=== PATIENT | female | born 1980 | race Caucasian/White ===

== ENCOUNTER 2017-04-07 13:34 | Emergency (ER) | payer OTHER ==
[~2017-04-07] VITALS: Ht 157.5 cm; Wt 86.2 kg
--- NOTE | ~2017-04-07 | CR278 ---
[facility]. [facility] A Service of [facility] RADIOLOGY TEXT RESULTS PATIENT: SHOSHANA HOLDER LOCATION: SED : [birth year] UNIT #: [id number] AGE: [address]: Deyvi Bowles MD SEX: F ORDER DR: [id number] [address] [address] [id number] E MR#: [id number] Acc #: [id number] NAME: SHOSHANA HOLDER : 1980 SEX: F STUDY DATE/TIME: 04/07/2017 14:40 UNIT: SED ROOM: STUDY DESCRIPTION: CR Wrist 2 View Lt Attending Physician: Deyvi Bowles M.D. Ordering Physician: Deyvi Bowles M.D. Primary Care Physician: Primary Care Physician No MEDICAL IMAGING REPORT This report is preliminary unless electronic signature is present. EXAM Left wrist, 2 views COMPARISON Two views of the left hand on the same date. INDICATION 36-year-old female with distal forearm pain and pain at the wrist after dog bite today. FINDINGS No radiopaque foreign body. Bones are anatomically aligned. No evidence of acute fracture. IMPRESSION Normal exam. No evidence of radiopaque foreign body. Dictated by... Micky Andres M.D. THIS IS AN ELECTRONICALLY VERIFIED REPORT Micky Andres M.D. at 04/11/2017 12:01 PM SUJIT/angle TD: 04/08/2017 08:54 JOB #: [id number] MEDICAL IMAGING REPORT Page 1 of 1
--- NOTE | ~2017-04-07 | CR279 ---
[facility] A Service of [facility] & [facility] RADIOLOGY TEXT RESULTS PATIENT: SHOSHANA HOLDER LOCATION: SED : 82 UNIT #: [id number] AGE: [address]: Deyvi Bowles MD SEX: F ORDER DR: [id number] [address] [address] [id number] E MR#: [id number] Acc #: [id number] NAME: SHOSHANA HOLDER : 1980 SEX: F STUDY DATE/TIME: 04/07/2017 14:49 UNIT: SED ROOM: STUDY DESCRIPTION: CR Wrist 2 View Rt Attending Physician: Deyvi Bowles M.D. Ordering Physician: Deyvi Bowles M.D. Primary Care Physician: Primary Care Physician No MEDICAL IMAGING REPORT This report is preliminary unless electronic signature is present. EXAM Right wrist 04/07/2017 HISTORY 36-year-old female with right wrist pain status post dog bite today. COMPARISON Right hand same date. FINDINGS Two views of the right wrist demonstrate soft tissue gas along the dorsal aspect of the hand and wrist. No radiopaque foreign bodies. No acute bony abnormality. IMPRESSION Soft tissue gas noted along the dorsal aspect of the hand and wrist. No radiopaque foreign bodies or acute bony abnormality. Dictated by... Rico Borrero M.D. THIS IS AN ELECTRONICALLY VERIFIED REPORT Rico Borrero M.D. at 04/08/2017 10:38 AM PARAS/angle TD: 04/08/2017 08:45 JOB #: [id number] MEDICAL IMAGING REPORT Page 1 of 1
--- NOTE | ~2017-04-07 | CR138 ---
[facility] A Service of [facility] & [facility] RADIOLOGY TEXT RESULTS PATIENT: SHOSHANA HOLDER LOCATION: SED : 82 UNIT #: [id number] AGE: [address]: Deyvi Bowles MD SEX: F ORDER DR: [id number] [address] [address] [id number] E MR#: [id number] Acc #: [id number] NAME: SHOSHANA HOLDER : 1980 SEX: F STUDY DATE/TIME: 04/07/2017 14:40 UNIT: SED ROOM: STUDY DESCRIPTION: CR Hand 2 Views Lt Attending Physician: Deyvi Bowles M.D. Ordering Physician: Deyvi Bowles M.D. Primary Care Physician: Primary Care Physician No MEDICAL IMAGING REPORT This report is preliminary unless electronic signature is present. EXAM Left hand, 3 views COMPARISON None. INDICATION 36-year-old female with left hand pain after dog bite today. FINDINGS Bones are anatomically aligned. No evidence of acute fracture or radiopaque foreign body. IMPRESSION No acute radiographic abnormality. No radiopaque foreign body. Dictated by... Micky Andres M.D. THIS IS AN ELECTRONICALLY VERIFIED REPORT Micky Andres M.D. at 04/11/2017 12:36 PM SUJIT/angle TD: 04/08/2017 08:58 JOB #: [id number] MEDICAL IMAGING REPORT Page 1 of 1
--- NOTE | ~2017-04-07 | CR139 ---
STS. [facility] A Service of [facility] & [facility] RADIOLOGY TEXT RESULTS PATIENT: SHOSHANA HOLDER LOCATION: SED : 82 UNIT #: [id number] AGE: [address]: Deyvi Bowles MD SEX: F ORDER DR: [id number] [address] [address] [id number] E MR#: [id number] Acc #: [id number] NAME: SHOSHANA HOLDER : 1980 SEX: F STUDY DATE/TIME: 04/07/2017 14:48 UNIT: SED ROOM: STUDY DESCRIPTION: CR Hand 2 Views Rt Attending Physician: Deyvi Bowles M.D. Ordering Physician: Deyvi Bowles M.D. Primary Care Physician: Primary Care Physician No MEDICAL IMAGING REPORT This report is preliminary unless electronic signature is present. EXAM Right hand 04/07/2017 HISTORY 36-year-old female with right hand pain status post dog bite today. COMPARISON Right wrist same date. FINDINGS Two views of the right hand demonstrate a small amount of soft tissue gas over the dorsal aspect of the hand. No radiopaque foreign bodies. No acute bony abnormality. IMPRESSION Small amount of soft tissue gas along the dorsal aspect of the hand. No radiopaque foreign bodies or acute bony abnormality. Dictated by... Rico Borrero M.D. THIS IS AN ELECTRONICALLY VERIFIED REPORT Rico Borrero M.D. at 04/08/2017 10:38 AM PARAS/angle TD: 04/08/2017 08:44 JOB #: [id number] MEDICAL IMAGING REPORT Page 1 of 1
[~2017-04-07 13:34] MED LIST: ACEBUTOLOL HCL200 MG PO; ALDACTONE; ALLEGRA PO; ALPRAZOLAM PO; AMOXICILLIN PO; ANTIVERT PO; ATARAX PO; BENADRYL25 M3 PO; BENADRYL25 MG PO; BIRTH CONTROL PILL; BISMUTH PO; CLARITHROMYCIN 500 MG PO; CLARITIN10 M2 PO; COGENTIN2 MG PO; IBUPROFEN PO; IBUPROFEN800 MG PO; K-DUR20 ME1 PO; K-DUR20 ME2 PO; KEFLEX500 M1 PO; LOPRESSOR PO; METRONIDAZOLE 250 MG PO; MOBIC15 MG PO; MOTRIN20 MG/ML; NEURONTIN; NORCO1 TAB 10/3 PO; NORFLEX100 M1 PO; NORFLEX100 MG PO; PEPCID AC20 M2 PO; PHENERGAN PO; PHENERGAN25 MG PO; PREDNISONE PO; PREDNISONE5 MG PO; PREDNISONE50 MG PO; PRILOSEC 20MG PO; PRILOSEC20 M1 PO; SECTRAL; SECTRAL 200 MG PO; SECTRAL200 M1 PO; SUCRALFATE PO; TUSSIONEX PENN473 ML PO; VOLTAREN50 MG PO; ZITHROMAX PO; ZYRTEC10 M1 PO
== END 2017-04-07 16:00 | disposition home or self-care (01) ==
LOC: SED 13:34
DX: S61.432A Puncture wound without foreign body of left hand, initial encounter (principal); S61.431A Puncture wound without foreign body of right hand, initial encounter; Z23 Encounter for immunization; I48.91 Unspecified atrial fibrillation; G43.909 Migraine, unspecified, not intractable, without status migrainosus; F17.210 Nicotine dependence, cigarettes, uncomplicated; Z88.2 Allergy status to sulfonamides; Z88.1 Allergy status to other antibiotic agents; W54.0XXA Bitten by dog, initial encounter; Y92.009 Unspecified place in unspecified non-institutional (private) residence as the place of occurrence of the external cause
CPT/HCPCS: 29125; 73100; 73120; 90471; 90715; 99283

== ENCOUNTER 2017-04-21 00:35 | Emergency (ER) | payer SELFPAY ==
[~2017-04-21] VITALS: Ht 158.8 cm; Wt 86.2 kg
== END 2017-04-21 01:52 | disposition home or self-care (01) ==
LOC: SED 00:35
DX: S61.452A Open bite of left hand, initial encounter (principal); S61.451A Open bite of right hand, initial encounter; F17.200 Nicotine dependence, unspecified, uncomplicated; Z88.2 Allergy status to sulfonamides; Z88.5 Allergy status to narcotic agent; Z79.899 Other long term (current) drug therapy; W54.0XXA Bitten by dog, initial encounter
CPT/HCPCS: 99283